=== PATIENT | female | born 1935 | race American Indian/Alaskan Native ===

== ENCOUNTER 2017-09-22 21:51 | Emergency (ER) | payer OTHER, MEDICARE ==
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
[2017-09-23 03:12] VITALS: BP 153/82
[2017-09-23] MEDS ORDERED: NORCO 5/325 PO ONE (03:15)
[2017-09-23] MEDS ORDERED: ZOFRAN ODT PO ONE (03:15)
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
== END 2017-09-23 05:42 | disposition home or self-care (01) ==
LOC: ED 21:51
DX: S20.212A Contusion of left front wall of thorax, initial encounter (principal); S09.8XXA Other specified injuries of head, initial encounter; S19.9XXA Unspecified injury of neck, initial encounter; I10 Essential (primary) hypertension; Z87.891 Personal history of nicotine dependence; V43.62XA Car passenger injured in collision with other type car in traffic accident, initial encounter; Y93.89 Activity, other specified; Y92.89 Other specified places as the place of occurrence of the external cause; Y99.8 Other external cause status
CPT/HCPCS: 70450; 71046; 71250; 72125; 93005; 93010; Q0162